=== PATIENT | male | born 1960 | race Caucasian/White ===

== ENCOUNTER 2022-05-02 07:50 | Day surgery (SDC) | payer OTHER ==
[~2022-05-02] VITALS: Ht 170.2 cm; Wt 70.3 kg
[2022-05-02 08:51] LABS: BASOPHILS # (AUTO) 0.1 K/uL (0.00-0.22); BASOPHILS % (AUTO) 2.2 % (0.0-2.0); EOSINOPHILS # (AUTO) 0.2 K/uL (0-0.4); EOSINOPHILS % (AUTO) 2.9 % (0.0-4.0); HEMATOCRIT 44.4 % (36-52); LYMPHOCYTES # (AUTO) 1.3 K/uL (2.0-11.5); LYMPHOCYTES % (AUTO) 23.3 % (20.5-51.1); MEAN CORPUSCULAR HEMOGLOBIN 28 pg (27-31); MEAN CORPUSCULAR HGB CONC 34 g/dL (33-37); MEAN CORPUSCULAR VOLUME 81.7 fL (80-94); MONOCYTES # (AUTO) 0.4 K/uL (0.8-1.0); MONOCYTES % (AUTO) 7.6 % (1.7-9.3); NEUTROPHILS # (AUTO) 3.6 K/uL (1.8-7.7); PLATELET COUNT (AUTO) 274 K/uL (140-450); RED BLOOD CELL COUNT(AUTO) 5.43 MIL/uL (4.20-6.10); RED CELL DISTRIBUTION WIDTH 14.6 % (11.6-13.7); WHITE BLOOD COUNT (AUTO) 5.7 K/uL (4.8-10.8)
[2022-05-02 09:11] LABS: ALBUMIN 4.2 g/dL (3.4-5.0); ANION GAP 12.2 (8-16); CARBON DIOXIDE 29.9 mmol/L (21-32); POTASSIUM 4.1 mmol/L (3.5-5.1); TOTAL BILIRUBIN 0.5 mg/dL (0.0-1.0)
[2022-05-02] MEDS ORDERED: PROPOFOL 200 MG/20 ML VIAL IV ONE ×3 (11:41→11:54)
[2022-05-03] MEDS ORDERED: ROSU40TA PO (04:54)
[2022-05-03] MEDS ORDERED: OMEP40EC23 PO (04:54)
[2022-05-03] MEDS ORDERED: METO25TE2 PO (04:54)
[2022-05-03] MEDS ORDERED: ASPI-1822 PO (04:54)
== END 2022-05-02 14:50 | disposition home or self-care (01) ==
LOC: MMU 07:50 → MOR 07:50
PROVIDERS: ATTEND Internal Medicine Gastroenterology
DX: Z12.11 Encounter for screening for malignant neoplasm of colon (principal); K57.30 Diverticulosis of large intestine without perforation or abscess without bleeding; K21.9 Gastro-esophageal reflux disease without esophagitis; Z86.010 Personal history of colon polyps; K44.9 Diaphragmatic hernia without obstruction or gangrene; I25.10 Atherosclerotic heart disease of native coronary artery without angina pectoris; I10 Essential (primary) hypertension; E78.5 Hyperlipidemia, unspecified; Z95.1 Presence of aortocoronary bypass graft; F17.210 Nicotine dependence, cigarettes, uncomplicated; Z79.82 Long term (current) use of aspirin; Z79.899 Other long term (current) drug therapy; Z20.822 Contact with and (suspected) exposure to COVID-19
CPT/HCPCS: 36415; 43239; 45378; 80053; 85025; 87426; 88305; 88312; 88313; 88342; 93005; J2704

== ENCOUNTER 2022-05-03 03:48 | Inpatient (IN) | payer OTHER ==
[~2022-05-03] VITALS: Ht 170.2 cm; Wt 70.8 kg
[2022-05-03 03:53] VITALS: BP 133/83
--- NOTE | 2022-05-03 03:58 | NUR ---
PT TAKEN TO BED 1
--- NOTE | 2022-05-03 04:05 | NUR ---
JERROD BIGGS ASSESSING PT WITH RN.
--- NOTE | 2022-05-03 04:08 | NUR ---
Patient is A/Ox4, chest rise and fall symmetrical, no s/s of distress, on monitor.
[2022-05-03] MEDS ORDERED: PANTOPRAZOLE 40 MG INJ VIAL IVP ONE ×2 (04:10→09:00)
[2022-05-03 04:40] LABS: BASOPHILS # (AUTO) 0.1 K/uL (0.00-0.22); BASOPHILS % (AUTO) 0.9 % (0.0-2.0); EOSINOPHILS % (AUTO) 0.1 % (0.0-4.0); HEMATOCRIT 31.6 % (36-52); HEMOGLOBIN 10.7 g/dL (12.0-18.0); LYMPHOCYTES % (AUTO) 8.3 % (20.5-51.1); MEAN CORPUSCULAR HEMOGLOBIN 28 pg (27-31); MEAN CORPUSCULAR HGB CONC 34 g/dL (33-37); MEAN CORPUSCULAR VOLUME 81.9 fL (80-94); MONOCYTES # (AUTO) 0.5 K/uL (0.8-1.0); MONOCYTES % (AUTO) 4.1 % (1.7-9.3); NEUTROPHILS # (AUTO) 10.1 K/uL (1.8-7.7); NEUTROPHILS % (AUTO) 86.6 % (42.2-75.2); PLATELET COUNT (AUTO) 278 K/uL (140-450); RED BLOOD CELL COUNT(AUTO) 3.86 MIL/uL (4.20-6.10); RED CELL DISTRIBUTION WIDTH 14.6 % (11.6-13.7); WHITE BLOOD COUNT (AUTO) 11.7 K/uL (4.8-10.8)
[2022-05-03] MEDS ORDERED: OMEP40EC23 PO (04:54)
[2022-05-03] MEDS ORDERED: METO25TE2 PO (04:54)
[2022-05-03] MEDS ORDERED: ASPI-1822 PO (04:54)
[2022-05-03] MEDS ORDERED: ROSU40TA PO (04:54)
[2022-05-03 05:01] LABS: PROTHROMBIN TIME 11.7 secs (10.8-13.4)
[2022-05-03 05:08] LABS: ALBUMIN 3.7 g/dL (3.4-5.0); ANION GAP 14.8 (8-16); ASPARTATE AMINOTRANSFERASE 18 U/L (15-37); CHLORIDE 103 mmol/L (98-107); GFR ARICAN-AMERICAN 97 mL/min (>90); GLUCOSE 109 mg/dL (74-106); LIPASE 122 U/L (73-393); POTASSIUM 4.8 mmol/L (3.5-5.1); SODIUM SERUM 137 mmol/L (136-145); TOTAL BILIRUBIN 0.3 mg/dL (0.0-1.0); UREA NITROGEN, BLOOD 46 mg/dL (7-18)
[2022-05-03] MEDS ORDERED: PANTOPRAZOLE 80 MG in NACL 0.9% 100 ML IVP SCH (05:25)
[2022-05-03] MEDS ORDERED: PANTOPRAZOLE 40 MG INJ VIAL ONE ×2 (05:50→14:54)
[2022-05-03] MEDS ORDERED: KCL 20 MEQ/WATER INJ PREMIX 200 ML IV PRN (05:50)
[2022-05-03] MEDS ORDERED: POTASSIUM CHLORIDE 10 MEQ TABER PO PRN (05:50)
[2022-05-03] MEDS ORDERED: ONDANSETRON 4 MG/2 ML VIAL IVP PRN (05:50)
[2022-05-03] MEDS ORDERED: HYDROcodone/APAP 5/325 MG 1 TAB TAB PO PRN (05:50)
[2022-05-03] MEDS ORDERED: MORPHINE SULFATE 4 MG/ML SYR IVP PRN (05:50)
[2022-05-03] MEDS ORDERED: MAG SULF 2000 MG/WATER PREMIX 50 ML IV PRN (05:50)
[2022-05-03] MEDS: NACL 0.9% 1,000 ML IV SCH ×2 (06:00→18:56)
--- NOTE | 2022-05-03 06:14 | NUR ---
Patient is A/Ox4, chest rise and fall symmetrical, no s/s of distress, on monitor.
--- NOTE | 2022-05-03 07:20 | NUR ---
Change of shift report given to AM shift nurse Shira RN. AM shift nurse Shira RN verbalized understanding of report, no further questions.
--- NOTE | 2022-05-03 07:42 | NUR ---
assumed care for pt at this time. pt. is resting in bed, no signs of distress. upon assessment, pt.'s chest is rising and falling, indicative of sleeping.
--- NOTE | 2022-05-03 13:49 | NUR ---
600ml or clear, yellow urine void output at this time.
[2022-05-03] MEDS: PANTOPRAZOLE IVP SCH ×2 (14:30→20:35)
[2022-05-03] MEDS: SODIUM CHLORIDE IVP SCH ×2 (14:30→20:35)
[2022-05-03] MEDS: [UNRECOGNIZED DRUG - OTHER] IVP SCH ×2 (14:30→20:35)
--- NOTE | 2022-05-03 17:00 | NUR ---
DISCHARGE PLANNING PATIENT IS A 61-YEAR-OLD MALE ADMITTED AT THE [facility]/ED ON 05/03/2022 DUE TO GI BLEED. SW MET WITH PATIENT AT BEDSIDE TO DISCUSS AND GATHER PATIENT'S COLLATERAL INFORMATION. PATIENT WAS AWAKE AND ALERT ABLE TO PROVIDE HIS OWN INFORMATION, PATIENT REPORTED LIVING AT A HOME WITH FRIENDS AND RENTING A ROOM IN THEIR HOME. PER PATIENT HE HAS FAMILY SUPPORT FROM HIS BROTHER LISA ORTEGA PATIENT STATED NOT HAVING ADVANCE DIRECTIVES AND WAS NOT INTERESTED ON GETTING INF. FORMS PROVIDED BY [facility]. PATIENT REPORTED THAT HIS BROTHER IS HIS EMERGENCY CONTACT AND HIS MEDICAL DECISION MAKER. PATIENT REPORTED BEEN ACTIVE AND INDEPENDENT AT HOME BEFORE HOSPITALIZATION. PATIENT ALSO REPORTED NOT HAVING ANY ISSUES TAKING OR GETTING HIS MEDICATIONS FROM [facility] IN [facility] [place] [facility]. PATIENT STATED NOT HAVING ANY DME AT HOME. PER PATIENT HE HAS PCP DR. ALAN WU AND REPORTED THAT HIS LAST VISIT WAS ON 03/14/2022 AT 2:20PM PER PATIENT HIS NEXT APPOINTMENT IS ALREADY SCHEDULED TO SEE PCP FOR 05/16/2022 AT 12:00PM. PER PATIENT HE WILL ATTEND HIS SCHEDULED FOLLOW UP APPOINTMENT AFTER HE IS DISCHARGE FROM [facility]. SW EXPLAINED TO PATIENT THE IMPORTANCE OF HIS FOLLOW UP APPOINTMENT WITH PCP. PATIENT AGREE. PER PATIENT HIS BROTHER WILL BE ASSISTING HIM WITH TRANSPORTATION BACK HOME WHEN HE IS READY AND STABLE FOR DISCHARGE. [facility]/MAR WILL FOLLOW NEEDED.
--- NOTE | 2022-05-03 17:38 | NUR ---
PATIENT HAS BEEN SCREENED AND CATEGORIZED MODERATE NUTRITION RISK. PATIENT WILL BE SEEN WITHIN 3-5 DAYS OF ADMISSION. REVIEWED BY NOAH BRENNER RD
[2022-05-03] MEDS: LORazepam 2 MG/ML VIAL IVP PRN (18:16)
--- NOTE | 2022-05-03 19:18 | NUR ---
report given to MALU Castellanos for continuity of care.
--- NOTE | 2022-05-03 19:40 | NUR ---
Note franklin in EDM - 05/03/22 at 2020 by [id number] Patient will be admitted to care of Dr. Live. Admited to telemetry. Will go to room 114. Belongings list completed. Report to Chris TORIBIO.
--- NOTE | 2022-05-03 20:14 | NUR ---
Patient will be admitted to care of DR SMITH. Admited to TELEMETRY. Will go to room 121B. Belongings list completed. Report to TIFFANY.
--- NOTE | 2022-05-03 20:20 | NUR ---
DR. STRANGE PUT IN ORDERS FOR LACTULOSE AND SENOKOT. MEDICATIONS GIVEN TO PT. NO COMPLAINS FROM THE PT. WILL CONTINUE TO MONITOR Addendum: 05/04/22 at 0228 by Mumtaz Mcdonald RN MEDICATIONS GIVEN AT [id number]
--- NOTE | 2022-05-03 20:26 | NUR ---
PT TRANSPORTED FROM ER VIA GURNEY. PT IS AAOX4 ON NC 2L. PT NOT IN ANY DISTRESS. PT HAS RIGHT AC 20 GAUGE RUNNING NS 80 CC/HR AND PROTONIX DRIP 10CC/HR. PT STATES HE FEELS WEAK AND NOT ABLE TO AMBULATE. URINAL PROVIDED. VITAL SIGNS TAKEN AND STABLE. DENIES ANY PAIN. PT EDUCATED PROPERTY UTILIZATION OFFICER LIGHT SYSTEM. WILL CONTINUE TO MONITOR THE PT.
[2022-05-03 20:33] VITALS: BP 104/72
[2022-05-03] MEDS ORDERED: LACTULOSE 20 GM/30 ML UDC PO SCH (22:10)
[2022-05-03] MEDS ORDERED: SENNA 8.6 MG TAB PO SCH (22:10)
[2022-05-03 22:25] LABS: BASOPHILS # (AUTO) 0.1 K/uL (0.00-0.22); BASOPHILS % (AUTO) 1.5 % (0.0-2.0); EOSINOPHILS # (AUTO) 0.2 K/uL (0-0.4); HEMATOCRIT 27.2 % (36-52); HEMOGLOBIN 9.2 g/dL (12.0-18.0); LYMPHOCYTES # (AUTO) 1.6 K/uL (2.0-11.5); LYMPHOCYTES % (AUTO) 20.6 % (20.5-51.1); MEAN CORPUSCULAR HEMOGLOBIN 28 pg (27-31); MEAN CORPUSCULAR HGB CONC 34 g/dL (33-37); MONOCYTES # (AUTO) 0.6 K/uL (0.8-1.0); MONOCYTES % (AUTO) 7.7 % (1.7-9.3); NEUTROPHILS # (AUTO) 5.4 K/uL (1.8-7.7); NEUTROPHILS % (AUTO) 68.2 % (42.2-75.2); PLATELET COUNT (AUTO) 243 K/uL (140-450); RED BLOOD CELL COUNT(AUTO) 3.32 MIL/uL (4.20-6.10); RED CELL DISTRIBUTION WIDTH 14.9 % (11.6-13.7); WHITE BLOOD COUNT (AUTO) 7.9 K/uL (4.8-10.8)
[2022-05-04] VITALS: BP 96/73
[2022-05-04] MEDS ORDERED: PANTOPRAZOLE 40 MG INJ VIAL ONE (01:03)
[2022-05-04] MEDS: [UNRECOGNIZED DRUG - OTHER] IVP SCH (01:18)
[2022-05-04] MEDS: SODIUM CHLORIDE IVP SCH (01:18)
[2022-05-04] MEDS: PANTOPRAZOLE IVP SCH (01:18)
--- NOTE | 2022-05-04 01:20 | NUR ---
PROTONIX DRIP CHANGED. NO ADVERSE REACTION NOTED. WILL CONTINUE TO MONITOR THE PT.
--- NOTE | 2022-05-04 02:05 | NUR ---
OBSERVED PT. PT IS SLEEPING COMFORTABLY IN BED. PT NOT IN ANY ACUTE DISTRESS. BREATHING EVEN AND UNLABORED. IVF AND PROTONIX DRIP RUNNING PER MD ORDER. SAFETY PRECAUTIONS TAKEN. WILL CONTINUE TO MONITOR
[2022-05-04 04:00] VITALS: BP 107/62
--- NOTE | 2022-05-04 05:51 | NUR ---
PT OBSERVED. PT IS SLEEPING IN BED. PT HAS NOT HAD A BM SINCE TRANSFER TO [facility]. PT WAS EDUCATED TO USE CALL LIGHT WHEN HAVING A BM. WILL CONTINUE TO MONITOR THE PT.
[2022-05-04 06:06] LABS: BASOPHILS # (AUTO) 0.1 K/uL (0.00-0.22); EOSINOPHILS # (AUTO) 0.2 K/uL (0-0.4); EOSINOPHILS % (AUTO) 2.6 % (0.0-4.0); HEMATOCRIT 24.4 % (36-52); HEMOGLOBIN 8.2 g/dL (12.0-18.0); LYMPHOCYTES # (AUTO) 1.5 K/uL (2.0-11.5); LYMPHOCYTES % (AUTO) 23.2 % (20.5-51.1); MEAN CORPUSCULAR HEMOGLOBIN 28 pg (27-31); MEAN CORPUSCULAR HGB CONC 34 g/dL (33-37); MEAN CORPUSCULAR VOLUME 81.6 fL (80-94); MONOCYTES # (AUTO) 0.5 K/uL (0.8-1.0); MONOCYTES % (AUTO) 7.5 % (1.7-9.3); NEUTROPHILS # (AUTO) 4.4 K/uL (1.8-7.7); NEUTROPHILS % (AUTO) 65.7 % (42.2-75.2); PLATELET COUNT (AUTO) 219 K/uL (140-450); RED BLOOD CELL COUNT(AUTO) 2.99 MIL/uL (4.20-6.10); RED CELL DISTRIBUTION WIDTH 15.1 % (11.6-13.7); WHITE BLOOD COUNT (AUTO) 6.6 K/uL (4.8-10.8)
[2022-05-04] MEDS: NACL 0.9% 1,000 ML IV SCH ×2 (06:50→20:21)
[2022-05-04 06:58] LABS: ANION GAP 11.5 (8-16); CARBON DIOXIDE 24.4 mmol/L (21-32); POTASSIUM 3.9 mmol/L (3.5-5.1)
--- NOTE | 2022-05-04 07:10 | NUR ---
ENDORSED PT TO DAY SHIFT RN FOR CONTINUITY OF CARE. PT IS STABLE.
--- NOTE | 2022-05-04 07:11 | NUR ---
RECEIVED REPORT FROM BLOGS MANAGER NURSE FOR CONTINUITY OF CARE. PT IN BED UTILIZING HIS PHONE AT THIS TIME. RESPIRATIONS ARE EVEN AND UNLABORED. PT IS ON 2L 02 VIA NC, HOWEVER, PT STATES HE RARELY USES THE NC. 02 SAT AT 99% ON ROOM AIR. PT IS ON CARDIAC MONITORING, HR 114 ST AT THIS TIME. NO COMPLAINTS OF CHEST PAIN. PT ABD IS NONTENDER, NONDISTENDED. BOWEL SOUNDS ACTIVE. PT CC: BLOODY STOOL. PT LAST BOWEL MOVEMENT 05/04/22. PT HAS IV TO R AC, 20G. INTACT AND PATENT. CALL LIGHT WITHIN REACH. ALL SAFETY MEASURES IN PLACE.
[2022-05-04 08:00] VITALS: BP 106/68
--- NOTE | 2022-05-04 09:12 | NUR ---
PT HAD LARGE BOWEL MOVEMENT, APPEARS BLACK IN COLOR. DR STRANGE MADE AWARE.
[2022-05-04 12:00] VITALS: BP 121/61
[2022-05-04] MEDS ORDERED: SENNA 8.6 MG TAB PO SCH ×2 (12:30→17:00)
[2022-05-04] MEDS ORDERED: LACTULOSE 20 GM/30 ML UDC PO SCH ×2 (12:30→17:00)
[2022-05-04] MEDS ORDERED: diphenhydrAMINE 50 MG/ML VIAL ONE (12:47)
[2022-05-04] MEDS ORDERED: DIAZEPAM PFS 10 MG/2 ML SYR ONE (12:47)
[2022-05-04] MEDS ORDERED: fentaNYL citrate 0.05 MG/ML VIAL ONE (12:47)
[2022-05-04] MEDS ORDERED: MIDAZOLAM 5 MG/5 ML VIAL ONE (12:47)
--- NOTE | 2022-05-04 12:53 | NUR ---
OR TEAM ON UNIT TO READING AIDE PT FOR SCHEDULED ENDOSCOPY.
[2022-05-04] MEDS: MIDAZOLAM 5 MG/5 ML VIAL IV ONE ×2 (13:12→14:10)
[2022-05-04] MEDS: fentaNYL citrate 0.05 MG/ML VIAL IVP ONE ×2 (13:13→14:10)
--- NOTE | 2022-05-04 14:02 | NUR ---
PT RETURNED TO UNIT. RESPIRATIONS ARE EVEN AND UNLABORED. NO SIGNS OF DISTRESS NOTED. NEW ORDERS TO DC PROTONIX DRIP.
[2022-05-04 16:00] VITALS: BP 117/83
[2022-05-04] MEDS: FERROUS GLUCONATE 324 MG TAB PO SCH (16:18)
[2022-05-04] MEDS: PANTOPRAZOLE 40 MG TABEC PO SCH (16:18)
[2022-05-04] MEDS: LORazepam 2 MG/ML VIAL IVP PRN (16:18)
--- NOTE | 2022-05-04 19:01 | NUR ---
ENDORSED PT TO NUCLEAR SECURITY OFFICER NURSETIFFANY. PT IS STABLE.
--- NOTE | 2022-05-04 19:30 | NUR ---
RECEIVED REPORT FROM DAY SHIFT JYOTHI WU FOR CONTINUITY OF CARE. PT IS AWAKE AND ALERT ON RA SATING 98%. PT LEFT UPPER ARM 22 GAUGE RUNNING NS 40 CC/HR. PT IS AMBULATORY. CALL LIGHT WITHIN REACH. WILL CONTINUE TO MONITOR THE PT.
[2022-05-04 20:00] VITALS: BP 108/63
[2022-05-05] VITALS: BP 101/61
[2022-05-05] MEDS: LORazepam 2 MG/ML VIAL IVP PRN ×3 (00:19→23:25)
--- NOTE | 2022-05-05 00:20 | NUR ---
PT FELT ANXIOUS AND WANTED ATIVAN. NO OTHER COMPLAINS. ATIVAN WAS GIVEN. SAFETY PRECAUTIONS TAKEN. WILL CONTINUE TO MONITOR THE PT.
--- NOTE | 2022-05-05 02:35 | NUR ---
OBSERVED PT. PT IS SLEEPING COMFORTABLY IN BED. PT NOT IN ANY ACUTE DISTRESS. BREATHING EVEN AND UNLABORED. IVF RUNNING PER MD ORDER. SAFETY PRECAUTIONS TAKEN. WILL CONTINUE TO MONITOR
[2022-05-05 04:00] VITALS: BP 102/68
--- NOTE | 2022-05-05 04:15 | NUR ---
VITAL SIGNS TAKEN AND STABLE. PT IS RESTING IN BED COMFORTABLY. NOT IN ANY ACUTE DISTRESS. PT HAS HAD NO BM THROUGHOUT THE SHIFT. WILL CONTINUE TO MONITOR THE PT.
[2022-05-05 06:11] LABS: BASOPHILS # (AUTO) 0.1 K/uL (0.00-0.22); BASOPHILS % (AUTO) 0.9 % (0.0-2.0); EOSINOPHILS # (AUTO) 0.3 K/uL (0-0.4); EOSINOPHILS % (AUTO) 4.9 % (0.0-4.0); HEMOGLOBIN 7.5 g/dL (12.0-18.0); LYMPHOCYTES # (AUTO) 1.2 K/uL (2.0-11.5); LYMPHOCYTES % (AUTO) 20.6 % (20.5-51.1); MEAN CORPUSCULAR HEMOGLOBIN 28 pg (27-31); MEAN CORPUSCULAR HGB CONC 34 g/dL (33-37); MEAN CORPUSCULAR VOLUME 81.7 fL (80-94); MONOCYTES # (AUTO) 0.4 K/uL (0.8-1.0); MONOCYTES % (AUTO) 7.5 % (1.7-9.3); NEUTROPHILS # (AUTO) 3.7 K/uL (1.8-7.7); NEUTROPHILS % (AUTO) 66.1 % (42.2-75.2); PLATELET COUNT (AUTO) 210 K/uL (140-450); RED CELL DISTRIBUTION WIDTH 14.8 % (11.6-13.7); WHITE BLOOD COUNT (AUTO) 5.6 K/uL (4.8-10.8)
[2022-05-05] MEDS: PANTOPRAZOLE 40 MG TABEC PO SCH ×2 (06:32→17:01)
[2022-05-05 06:38] LABS: ANION GAP 10.9 (8-16); CARBON DIOXIDE 25.7 mmol/L (21-32); CREATININE 0.9 mg/dL (0.6-1.3); POTASSIUM 3.6 mmol/L (3.5-5.1)
--- NOTE | 2022-05-05 07:10 | NUR ---
ENDORSED PT TO DAY SHIFT MALU BINGHAM FOR CONTINUITY OF CARE. PT IS STABLE.
[2022-05-05 08:00] VITALS: BP 97/54
[2022-05-05] MEDS: FERROUS GLUCONATE 324 MG TAB PO SCH ×2 (08:55→17:49)
[2022-05-05] MEDS: ACETAMINOPHEN 325 MG TAB PO PRN (10:21)
[2022-05-05 12:54] VITALS: BP 103/71
--- NOTE | 2022-05-05 19:30 | NUR ---
RECEIVED REPORT FROM DAY SHIFT RN OTILIA FOR CONTINUITY OF CARE. PT IS AWAKE AND ALERT ON RA SATING 98%. PT COMPLAINING OF LEFT SHOULDER PAIN 5/10. WILL GIVE NORCO ONCE VITAL SIGNS TAKEN. NO OTHER COMPLAINS. CALL LIGHT WITHIN REACH. WILL CONTINUE TO MONITOR THE PT.
[2022-05-05 20:00] VITALS: BP 115/70
--- NOTE | 2022-05-05 20:27 | NUR ---
PT HAS IV ON RIGHT FOREARM 24 GAUGE RUNNING 40 CC/HR. PT WAS GIVEN NORCO EARLIER FOR LEFT SHOULDER PAIN 08/29. NO OTHER COMPLAINS AT THIS TIME. WILL CONTINUE TO MONITOR THE PT.
[2022-05-05] MEDS: NACL 0.9% 1,000 ML IV SCH (20:29)
[2022-05-06] VITALS: BP 156/78
--- NOTE | 2022-05-06 00:05 | NUR ---
OBSERVED PT. PT IS SLEEPING COMFORTABLY IN BED. PT NOT IN ANY ACUTE DISTRESS. BREATHING EVEN AND UNLABORED. VITAL SIGNS STABLE. IVF RUNNING PER MD ORDER. SAFETY PRECAUTIONS TAKEN. WILL CONTINUE TO MONITOR
[2022-05-06 04:00] VITALS: BP 103/66
--- NOTE | 2022-05-06 04:05 | NUR ---
VITAL SIGNS TAKEN AND STABLE. PT NOT IN ANY RESPIRATORY DISTRESS. PT HAS NO COMPLAINS AT THIS TIME. BED AT THE LOWEST POSITION. HEAD OF THE BED RAISED. WILL CONTINUE TO MONITOR THE PT.
[2022-05-06 06:04] LABS: BASOPHILS # (AUTO) 0.1 K/uL (0.00-0.22); BASOPHILS % (AUTO) 1.3 % (0.0-2.0); EOSINOPHILS # (AUTO) 0.4 K/uL (0-0.4); EOSINOPHILS % (AUTO) 6.4 % (0.0-4.0); HEMATOCRIT 24.2 % (36-52); HEMOGLOBIN 8.2 g/dL (12.0-18.0); LYMPHOCYTES # (AUTO) 1.7 K/uL (2.0-11.5); LYMPHOCYTES % (AUTO) 27.6 % (20.5-51.1); MEAN CORPUSCULAR HEMOGLOBIN 28 pg (27-31); MEAN CORPUSCULAR HGB CONC 34 g/dL (33-37); MEAN CORPUSCULAR VOLUME 82.4 fL (80-94); MONOCYTES # (AUTO) 0.5 K/uL (0.8-1.0); MONOCYTES % (AUTO) 7.6 % (1.7-9.3); NEUTROPHILS # (AUTO) 3.6 K/uL (1.8-7.7); NEUTROPHILS % (AUTO) 57.1 % (42.2-75.2); PLATELET COUNT (AUTO) 241 K/uL (140-450); RED BLOOD CELL COUNT(AUTO) 2.94 MIL/uL (4.20-6.10); RED CELL DISTRIBUTION WIDTH 15.1 % (11.6-13.7); WHITE BLOOD COUNT (AUTO) 6.3 K/uL (4.8-10.8)
[2022-05-06 06:22] LABS: ANION GAP 11.5 (8-16); CARBON DIOXIDE 26.9 mmol/L (21-32); POTASSIUM 3.4 mmol/L (3.5-5.1)
[2022-05-06] MEDS: PANTOPRAZOLE 40 MG TABEC PO SCH ×2 (06:33→15:35)
--- NOTE | 2022-05-06 07:07 | NUR ---
ENDORSED PT TO DAY SHIFT RN FOR CONTINUITY OF CARE. PT IS STABLE.
[2022-05-06 08:00] VITALS: BP 122/72
[2022-05-06] MEDS: FERROUS GLUCONATE 324 MG TAB PO SCH ×2 (09:04→16:31)
[2022-05-06] MEDS: LORazepam 2 MG/ML VIAL IVP PRN ×3 (09:05→22:35)
[2022-05-06 12:00] VITALS: BP 134/81
[2022-05-06] MEDS: DOCUSATE SODIUM 250 MG GELCAP PO PRN (15:36)
[2022-05-06 16:00] VITALS: BP 132/84
--- NOTE | 2022-05-06 19:30 | NUR ---
RECEIVED REPORT FROM DAY NURSE OTILIA. NOTED PT IN BED, BUSY ON THE PHONE. RESPIRATIONS EVEN AND UNLABORED, IV SITE AT R WRIST RUNNING WITH IV FLUIDS (NS) @ 40ML/HR. PT IN NO APPARENT DISTRESS AT THIS TIME. WILL CONT TO MONITOR.
[2022-05-06 22:29] VITALS: BP 133/80
[2022-05-07] MEDS: NACL 0.9% 1,000 ML IV SCH (01:34)
[2022-05-07] MEDS: LORazepam 2 MG/ML VIAL IVP PRN ×3 (04:28→23:46)
[2022-05-07] MEDS: DOCUSATE SODIUM 250 MG GELCAP PO PRN (04:28)
[2022-05-07 05:08] VITALS: BP 144/84
[2022-05-07 05:55] LABS: BASOPHILS # (AUTO) 0.1 K/uL (0.00-0.22); BASOPHILS % (AUTO) 0.9 % (0.0-2.0); EOSINOPHILS # (AUTO) 0.3 K/uL (0-0.4); EOSINOPHILS % (AUTO) 5.4 % (0.0-4.0); HEMATOCRIT 24.5 % (36-52); HEMOGLOBIN 8.5 g/dL (12.0-18.0); LYMPHOCYTES # (AUTO) 1.3 K/uL (2.0-11.5); LYMPHOCYTES % (AUTO) 22.7 % (20.5-51.1); MEAN CORPUSCULAR HEMOGLOBIN 28 pg (27-31); MEAN CORPUSCULAR HGB CONC 35 g/dL (33-37); MEAN CORPUSCULAR VOLUME 81.6 fL (80-94); MONOCYTES # (AUTO) 0.5 K/uL (0.8-1.0); MONOCYTES % (AUTO) 7.7 % (1.7-9.3); NEUTROPHILS # (AUTO) 3.7 K/uL (1.8-7.7); NEUTROPHILS % (AUTO) 63.3 % (42.2-75.2); PLATELET COUNT (AUTO) 296 K/uL (140-450); RED CELL DISTRIBUTION WIDTH 14.9 % (11.6-13.7); WHITE BLOOD COUNT (AUTO) 5.9 K/uL (4.8-10.8)
[2022-05-07 06:14] LABS: ANION GAP 12.3 (8-16); CARBON DIOXIDE 25.9 mmol/L (21-32); POTASSIUM 3.2 mmol/L (3.5-5.1)
[2022-05-07] MEDS: PANTOPRAZOLE 40 MG TABEC PO SCH ×2 (06:59→17:04)
--- NOTE | 2022-05-07 07:27 | NUR ---
END OF SHIFT REPORT GIVEN TO OTILIA FOR CONTINUITY OF CARE. PT STABLE AND SLEEPING AT THIS TIME. IV FLUIDS RUNNING AT 40 VIA R WRIST.
[2022-05-07 08:00] VITALS: BP 112/73
[2022-05-07] MEDS: FERROUS GLUCONATE 324 MG TAB PO SCH ×2 (08:58→17:04)
--- NOTE | 2022-05-07 09:43 | NUR ---
LARGE SOFT BROWN/DARK BROWN/BLACK STOOL PATIENT REQUESTS FOR NURSE TO OBSERVE IN TOILET. EDUCATION ABOUT SIDE EFFECTS OF IRON COULD BE DARK COLOR STOOL. PATIENT NEEDS REINFORCEMENT OF TEACHING.
[2022-05-07] MEDS: ACETAMINOPHEN 325 MG TAB PO PRN (10:38)
[2022-05-07 12:00] VITALS: BP 137/84
--- NOTE | 2022-05-07 15:09 | NUR ---
05/07/22 RD INITIAL ASSESSMENT COMPLETED PLEASE REFER TO NUTRITION ASSESSMENT UNDER CARE ACTIVITY FOR ESTIMATED NUTRITIONAL NEEDS. 1. CONTINUE CARDIAC DIET 2. MONITOR PO INTAKE, GI, AND LAB VALUES. 3. RD TO FOLLOW-UP 7 DAYS, LOW RISK REVIEWED BY NOAH BRENNER RD
[2022-05-07 16:00] VITALS: BP 116/85
--- NOTE | 2022-05-07 19:50 | NUR ---
RECEIVED ENDORSEMENT FROM DAY SHIFT NURSE. PT IS AWAKE, ALERT AND VERBALLY RESPONSIVE. PT IS ABLE TO AMBULATE ON THE HOLE WAY INDEPENDENTLY. PT STATED THAT HE FEELS COMFORTABLE AFTER USING RESTROOM AND ABLE TO HAVE MODERATE BM. BM NOTED TO BE BLACK IN COLOR, SOFT. PT CONSUMED 100% OF DINNER. PT IS ON STABLE CONDITION.
[2022-05-07 20:00] VITALS: BP 122/81
--- NOTE | 2022-05-07 20:30 | NUR ---
IV SITE ON LEFT FOREARM INTACT AND PATENT.
--- NOTE | 2022-05-07 22:30 | NUR ---
PT MOVES TO ROOM 110A.
--- NOTE | 2022-05-07 23:30 | NUR ---
RECEIVED REPORT FROM INFUSION RN NURSE ADRIANNA FOR CONTINUITY OF CARE. PATIENT IS A&O X4. PATIENT IS ON ROOM AIR, BREATHING IS NORMAL WITH SYMMETRICAL RISE AND FALL OF CHEST. IV IS A 22G LFA, RUNNING NS AT 40. PATIENT IS AWAKE SITTING UP IN BED. BED IS IN LOWEST POSITION, WHEELS LOCKED, CALL LIGHT IN PLACE. WILL CONTINUE TO OBSERVE PATIENT.
--- NOTE | 2022-05-07 23:30 | NUR ---
ENDORSED PT TO LIANNE TORIBIO TO CONTINUE PT CARE.
[2022-05-08] VITALS: BP 120/77
[2022-05-08] MEDS: NACL 0.9% 1,000 ML IV SCH (00:46)
[2022-05-08 04:00] VITALS: BP 118/69
--- NOTE | 2022-05-08 04:00 | NUR ---
PATIENT REQUESTED ATIVAN TO HELP HIM SLEEP. CHECKED CHART; ATIVAN WAS APPROPRIATE TO GIVE. ADMINISTERED ATIVAN AT 2346; PATIENT TOLERATED WELL. PATIENT IS SLEEPING; BREATHING IS NORMAL WITH SYMMETRICAL RISE AND FALL OF CHEST. WILL CONTINUE TO OBSERVE PATIENT.
[2022-05-08] MEDS: DOCUSATE SODIUM 250 MG GELCAP PO PRN (06:37)
[2022-05-08] MEDS: PANTOPRAZOLE 40 MG TABEC PO SCH (06:37)
[2022-05-08 06:57] LABS: BASOPHILS # (AUTO) 0.1 K/uL (0.00-0.22); BASOPHILS % (AUTO) 1.1 % (0.0-2.0); EOSINOPHILS # (AUTO) 0.3 K/uL (0-0.4); EOSINOPHILS % (AUTO) 5.7 % (0.0-4.0); HEMATOCRIT 23.8 % (36-52); HEMOGLOBIN 8.2 g/dL (12.0-18.0); LYMPHOCYTES # (AUTO) 1.5 K/uL (2.0-11.5); MEAN CORPUSCULAR HEMOGLOBIN 28 pg (27-31); MEAN CORPUSCULAR HGB CONC 34 g/dL (33-37); MEAN CORPUSCULAR VOLUME 82.5 fL (80-94); MONOCYTES # (AUTO) 0.5 K/uL (0.8-1.0); MONOCYTES % (AUTO) 8.3 % (1.7-9.3); NEUTROPHILS # (AUTO) 3.3 K/uL (1.8-7.7); NEUTROPHILS % (AUTO) 57.9 % (42.2-75.2); PLATELET COUNT (AUTO) 309 K/uL (140-450); RED BLOOD CELL COUNT(AUTO) 2.89 MIL/uL (4.20-6.10); RED CELL DISTRIBUTION WIDTH 15.1 % (11.6-13.7); WHITE BLOOD COUNT (AUTO) 5.7 K/uL (4.8-10.8)
[2022-05-08 07:16] LABS: ANION GAP 8.1 (8-16); CARBON DIOXIDE 28.5 mmol/L (21-32); POTASSIUM 3.6 mmol/L (3.5-5.1)
--- NOTE | 2022-05-08 07:25 | NUR ---
ENDORSED TO DAY SHIFT NURSE ADZE FOR CONTINUITY OF CARE. PATIENT IS STABLE.
[2022-05-08 08:00] VITALS: BP 129/80
[2022-05-08] MEDS: FERROUS GLUCONATE 324 MG TAB PO SCH (08:00)
[2022-05-08] MEDS ORDERED: PANT40EC PO (10:15)
[2022-05-08] MEDS ORDERED: FERR324T11 PO (10:15)
[2022-05-08 11:34] VITALS: BP 129/80
--- NOTE | 2022-05-08 14:00 | NUR ---
patient discharged home. personal belongings sent home. stable upon discharge.
== END 2022-05-08 14:00 | disposition home or self-care (01) | DRG 241 ==
LOC: MED 03:48 → MTU 05:52 → OBSVTOIN 16:17 → MTU 18:20
PROVIDERS: ADMIT Hospitalist; ATTEND Hospitalist
PROC: 0DJD8ZZ Inspection of Lower Intestinal Tract, Via Natural or Artificial Opening Endoscopic (ICD-10-PCS; 2022-05-04)
PROC: 0DJ08ZZ Inspection of Upper Intestinal Tract, Via Natural or Artificial Opening Endoscopic (ICD-10-PCS; principal; 2022-05-04 13:00)
DX: K25.4 Chronic or unspecified gastric ulcer with hemorrhage (principal); R65.10 Systemic inflammatory response syndrome (SIRS) of non-infectious origin without acute organ dysfunction; D72.829 Elevated white blood cell count, unspecified; K92.1 Melena; I10 Essential (primary) hypertension; F41.9 Anxiety disorder, unspecified; I25.10 Atherosclerotic heart disease of native coronary artery without angina pectoris; K44.9 Diaphragmatic hernia without obstruction or gangrene; K21.00 Gastro-esophageal reflux disease with esophagitis, without bleeding; E78.5 Hyperlipidemia, unspecified; Z20.822 Contact with and (suspected) exposure to COVID-19; K22.70 Barrett's esophagus without dysplasia; Z79.82 Long term (current) use of aspirin; Z95.1 Presence of aortocoronary bypass graft; Z95.5 Presence of coronary angioplasty implant and graft; K57.30 Diverticulosis of large intestine without perforation or abscess without bleeding; D62 Acute posthemorrhagic anemia
CPT/HCPCS: 36415; 71045; 80048; 80053; 83690; 83735; 84484; 85025; 85610; 86886; 86900; 86901; 87081; 93005; 96374; 96375; 99291; C9113; J1200; J2060; J2250; J3010; J3360; J7030; Q0092

== ENCOUNTER 2023-05-12 11:22 | Emergency (ER) | payer OTHER ==
[~2023-05-12] VITALS: Ht 170.2 cm; Wt 65.8 kg
[~2023-05-12 11:22] MED LIST: ASPI-1822 PO; FAMO-92 PO; FERR324T11 PO; METO25TE2 PO; PANT40EC PO; ROSU40TA PO
[2023-05-12 11:51] VITALS: BP 126/80; PULSE 63; RESP 16; TEMP 98.2; O2SAT 98
[2023-05-12] MEDS ORDERED: ACETAMINOPHEN 325 MG TAB PO ONE (12:50)
[2023-05-12] MEDS ORDERED: methocarbamoL 500 MG TAB PO ONE (12:50)
[2023-05-12] MEDS ORDERED: KETOROLAC 30 MG/ML VIAL IM ONE (12:50)
[2023-05-12] MEDS ORDERED: LIDOCAINE 5% 1 EA PATCH TP ONE (12:50)
[2023-05-12] MEDS ORDERED: ACET-10509 PO (13:56)
[2023-05-12] MEDS ORDERED: ACET-8905 PO (13:56)
[2023-05-12] MEDS ORDERED: LID5T TP (13:56)
[2023-05-12] MEDS ORDERED: METH-1681 PO (13:56)
[2023-05-12 14:26] VITALS: BP 126/80; PULSE 63; RESP 16; TEMP 98.2; O2SAT 98
== END 2023-05-12 14:20 | disposition home or self-care (01) ==
LOC: MED 11:22
DX: S29.012A Strain of muscle and tendon of back wall of thorax, initial encounter (principal); M25.512 Pain in left shoulder; I10 Essential (primary) hypertension; I25.10 Atherosclerotic heart disease of native coronary artery without angina pectoris; E78.5 Hyperlipidemia, unspecified; Z95.1 Presence of aortocoronary bypass graft; Z79.899 Other long term (current) drug therapy; Z79.82 Long term (current) use of aspirin; X58.XXXA Exposure to other specified factors, initial encounter; Y92.89 Other specified places as the place of occurrence of the external cause; Y93.89 Activity, other specified; Y99.8 Other external cause status
CPT/HCPCS: 73030; 96372; 99284; J1885

== ENCOUNTER 2023-06-13 20:52 | Emergency (ER) | payer OTHER ==
[~2023-06-13] VITALS: Ht 170.2 cm; Wt 65.8 kg
[~2023-06-13 20:52] MED LIST changes: +ACET-10509 PO; +ACET-8905 PO; +LID5T TP; +METH-1681 PO
[2023-06-13 21:05] VITALS: BP 120/82; PULSE 90; RESP 16; TEMP 97.4; O2SAT 98
[2023-06-13 21:19] VITALS: O2SAT 99
[2023-06-13 21:45] LABS: APPEARANCE,URINE CLEAR (CLEAR); BILIRUBIN,URINE NEGATIVE (NEGATIVE); BLOOD, URINE 2+ (NEGATIVE); COLOR,URINE YELLOW (YELLOW); LEUKOCYTE ESTERASE ,URINE NEGATIVE (NEGATIVE); NITRITE, URINE NEGATIVE (NEGATIVE); PROTEIN,URINE NEGATIVE (NEGATIVE); UGLUCOSE NEGATIVE (NEGATIVE); UROBILINOGEN,URINE 0.2 EU/dL (0.2 - 1)
[2023-06-13 21:45] LABS: BASOPHILS # (AUTO) 0.1 K/uL (0.00-0.22); BASOPHILS % (AUTO) 1.1 % (0.0-2.0); EOSINOPHILS # (AUTO) 0.2 K/uL (0-0.4); EOSINOPHILS % (AUTO) 2.5 % (0.0-4.0); HEMOGLOBIN 14.1 g/dL (12.0-18.0); LYMPHOCYTES # (AUTO) 1.5 K/uL (2.0-11.5); LYMPHOCYTES % (AUTO) 15.4 % (20.5-51.1); MEAN CORPUSCULAR HEMOGLOBIN 30 pg (27-31); MEAN CORPUSCULAR HGB CONC 34 g/dL (33-37); MEAN CORPUSCULAR VOLUME 89.8 fL (80-94); MONOCYTES # (AUTO) 0.9 K/uL (0.8-1.0); MONOCYTES % (AUTO) 8.7 % (1.7-9.3); NEUTROPHILS # (AUTO) 7.3 K/uL (1.8-7.7); NEUTROPHILS % (AUTO) 72.3 % (42.2-75.2); PLATELET COUNT (AUTO) 275 K/uL (140-450); RED BLOOD CELL COUNT(AUTO) 4.67 MIL/uL (4.20-6.10); RED CELL DISTRIBUTION WIDTH 13.9 % (11.6-13.7)
[2023-06-13 21:58] LABS: CALCIUM 8.7 mg/dL (8.5-10.1); CARBON DIOXIDE 27.5 mmol/L (21-32); CREATININE 0.9 mg/dL (0.6-1.3); POTASSIUM 3.5 mmol/L (3.5-5.1)
[2023-06-13 22:03] LABS: ALBUMIN 3.1 g/dL (3.4-5.0); BILIRUBIN,DIRECT 0.1 mg/dL (0.0-0.3); TOTAL BILIRUBIN 0.2 mg/dL (0.0-1.0); TOTAL PROTEIN, SERUM 7.9 g/dL (6.4-8.2)
[2023-06-13] MEDS: KETOROLAC 30 MG/ML VIAL IVP ONE (22:55)
[2023-06-14] MEDS ORDERED: BEN10 PO (01:21)
[2023-06-14] MEDS ORDERED: ACET-10509 PO (01:21)
[2023-06-14 01:37] VITALS: BP 113/78; PULSE 82; RESP 13; TEMP 98.4; O2SAT 96
== END 2023-06-14 01:37 | disposition home or self-care (01) ==
LOC: MED 20:52
DX: R10.11 Right upper quadrant pain (principal); I11.9 Hypertensive heart disease without heart failure; Z79.899 Other long term (current) drug therapy
CPT/HCPCS: 36415; 74177; 76705; 80048; 80076; 81003; 83690; 85025; 96374; 99285; J1885; Q0092; Q9967

== ENCOUNTER 2024-01-13 23:45 | Emergency (ER) | payer OTHER, MEDICAID ==
[~2024-01-13] VITALS: Ht 170.2 cm; Wt 65.8 kg
[~2024-01-13 23:45] MED LIST changes: -ACET-10509 PO; +ACET500T99 PO; +BEN10 PO
[2024-01-13 23:56] VITALS: BP 121/89; PULSE 111; RESP 20; TEMP 98.6; O2SAT 97
[2024-01-14 01:39] LABS: BASOPHILS % (AUTO) 0.2 % (0.0-2.0); EOSINOPHILS # (AUTO) 0.1 K/uL (0-0.4); HEMATOCRIT 43.9 % (36-52); LYMPHOCYTES # (AUTO) 0.2 K/uL (2.0-11.5); LYMPHOCYTES % (AUTO) 3.3 % (20.5-51.1); MEAN CORPUSCULAR HEMOGLOBIN 30 pg (27-31); MEAN CORPUSCULAR HGB CONC 34 g/dL (33-37); MEAN CORPUSCULAR VOLUME 87.9 fL (80-94); MONOCYTES # (AUTO) 0.3 K/uL (0.8-1.0); MONOCYTES % (AUTO) 3.9 % (1.7-9.3); NEUTROPHILS # (AUTO) 6.9 K/uL (1.8-7.7); NEUTROPHILS % (AUTO) 91.6 % (42.2-75.2); PLATELET COUNT (AUTO) 226 K/uL (140-450); RED BLOOD CELL COUNT(AUTO) 4.99 MIL/uL (4.20-6.10); RED CELL DISTRIBUTION WIDTH 13.7 % (11.6-13.7); WHITE BLOOD COUNT (AUTO) 7.5 K/uL (4.8-10.8)
[2024-01-14 01:51] LABS: ALBUMIN 3.6 g/dL (3.4-5.0); ANION GAP 12.4 (8-16); CALCIUM 8.8 mg/dL (8.5-10.1); CARBON DIOXIDE 27.2 mmol/L (21-32); CREATININE 1.1 mg/dL (0.6-1.3); POTASSIUM 3.6 mmol/L (3.5-5.1); TOTAL BILIRUBIN 0.6 mg/dL (0.0-1.0); TOTAL PROTEIN, SERUM 6.8 g/dL (6.4-8.2)
[2024-01-14] MEDS ORDERED: DICYCLOMINE HCL LIQUID 10 MG/5 ML UDC ONE (02:51)
[2024-01-14] MEDS ORDERED: ALUMINUM HYD/MAG/SIMETHICONE 30 ML UDC ONE (02:51)
[2024-01-14] MEDS: DICYCLOMINE HCL LIQUID 20 MG, ALUMINUM HYD/MAG/SIMETHICONE 30 ML, LIDOCAINE VISCOUS 2% ... PO ONE (02:57)
[2024-01-14] MEDS ORDERED: PANT40EC PO (05:56)
[2024-01-14] MEDS: PANTOPRAZOLE 40 MG INJ VIAL IVP ONE (06:04)
[2024-01-14] MEDS: POTASSIUM CHLORIDE 10 MEQ TABER PO ONE (06:12)
[2024-01-14 06:36] VITALS: BP 103/66; PULSE 83; RESP 16; TEMP 98.8; O2SAT 96
== END 2024-01-14 06:36 | disposition home or self-care (01) ==
LOC: MED 23:45
DX: R07.89 Other chest pain (principal); K21.9 Gastro-esophageal reflux disease without esophagitis; K22.70 Barrett's esophagus without dysplasia; I25.10 Atherosclerotic heart disease of native coronary artery without angina pectoris; Z95.1 Presence of aortocoronary bypass graft; I10 Essential (primary) hypertension; Z79.899 Other long term (current) drug therapy; Z79.82 Long term (current) use of aspirin
CPT/HCPCS: 36415; 71045; 80053; 83690; 83880; 84484; 85025; 93005; 96374; 99285; J2470; Q0092